=== PATIENT | male | born 1930 | race Hispanic/Latino ===

== ENCOUNTER 2017-04-24 13:09 | Observation (INO) | payer MEDICARE ==
[2017-04-24 13:15] VITALS: BMI 21.6
--- NOTE | 2017-04-24 14:00 | C.PDOC ---
History Of Present Illness Patient is a 86 y/o male, whose PMHx includes HTN, pacemaker, CAD, and 2 stents , that presents to the ED for evaluation of an episode of left sided chest pain that lasted about 10 minutes this morning. Patient states that his symptoms resolved spontaneously. Otherwise, denies any back pain, neck pain, shortness of breath, n/v/d, abdominal pain, fever, or any other associated symptoms at this time. PMD: Dr. Deisi yAala Time Seen by Provider: 04/24/17 13:21 Chief Complaint (Nursing): Chest Pain History Per: Patient History/Exam Limitations: no limitations Onset/Duration Of Symptoms: Hrs Current Symptoms Are (Timing): Gone Quality: "Pain" Associated Symptoms: denies: Nausea, Dyspnea, Diaphoresis, Syncope Modifying Factors: None Alleviating Factors: None Recent travel outside of the [place]: No Additional History Per: Patient Past Medical History Reviewed: Historical Data, Nursing Documentation, Vital Signs Vital Signs: Last Vital Signs Temp 97.6 F 04/24/17 13:28 Pulse 67 04/24/17 15:00 Resp 17 04/24/17 15:00 BP 141/83 04/24/17 15:00 Pulse Ox 98 04/24/17 15:55 - Medical History PMH: Arthritis, Benign Prostatic Hyperplasia, Cardia Arrhythmia, HTN Surgical History: Coronary Stent (3 stents), Pacemaker - [employer] Procedures ANT NASAL PACK FOR EPIST (02/02/14) INITIAL INSERT TRANS LEADS INTO [employer] (12/29/13) INITIAL INSERTION OF DUAL-CHAMBER DEVICE (12/29/13) Family History: States: Unknown Family Hx - Social History Hx Tobacco Use: No Hx Alcohol Use: No Hx Substance Use: No - Immunization History Hx Tetanus Toxoid Vaccination: No Hx Influenza Vaccination: Yes Hx Pneumococcal Vaccination: No Review Of Systems Except As Marked, All Systems Reviewed And Found Negative. Constitutional: Negative for: Fever, Chills Cardiovascular: Positive for: Chest Pain. Negative for: Palpitations, Edema, Light Headedness Respiratory: Negative for: Cough, Shortness of Breath, SOB with Excertion, Pleuritic Pain, Sputum Gastrointestinal: Negative for: Nausea, Vomiting, Abdominal Pain, Diarrhea Musculoskeletal: Negative for: Neck Pain, Back Pain Skin: Negative for: Rash Neurological: Negative for: Weakness, Numbness, Headache, Dizziness Physical Exam - Physical Exam Appears: Well, Non-toxic, No Acute Distress Skin: Normal Color, Warm, Dry Head: Atraumatic, Normacephalic Eye(s): bilateral: Normal Inspection, PERRL, EOMI Neck: Normal ROM, Supple Chest: Symmetrical, No Tenderness Cardiovascular: Rhythm Regular, No Murmur Respiratory: Normal Breath Sounds, No Rales, No Rhonchi, No Wheezing Gastrointestinal/Abdominal: Soft, No Tenderness, No Mass, No Distention Back: Normal Inspection, CVA Tenderness Extremity: Normal ROM, No Pedal Edema Neurological/Psych: Oriented x3, Normal Speech, Normal Cognition ED Course And Treatment - Laboratory Results Result Diagrams: 04/24/17 14:09 04/24/17 14:09 O2 Sat by Pulse Oximetry: 98 (on RA) Pulse Ox Interpretation: Normal Progress Note: Blood work, CXR ordered and reviewed. Patient was given Aspirin. Medical Decision Making Medical Decision Making: EKG shows paced rhythm at 71bpm. Trop x 1 negative. Cxray negative. Due to risk factors, clinical history of presentation, will transfer to tele observation. Accepted to tele observation under Dr. Nino (covering for Emilio ) Disposition - Disposition Disposition: HOSPITALIZED Disposition Time: 15:18 Condition: FAIR - Clinical Impression Clinical Impression: Chest pain - Scribe Statement The provider has reviewed the documentation as recorded by the Scribe Tobi Lopez All medical record entries made by the Scribe were at my direction and personally dictated by me. I have reviewed the chart and agree that the record accurately reflects my personal performance of the history, physical exam, medical decision making, and the department course for this patient. I have also personally directed, reviewed, and agree with the discharge instructions and disposition.
[2017-04-24 14:15] LABS: BASO # 0.1 K/uL (0.0-0.2); BASO % 1.1 % (0.0-2.0); EOS # 0.2 K/uL (0.0-0.7); HEMOGLOBIN 11.8 g/dL (12.0-18.0); LYMPH # 1.2 K/uL (1.0-4.3); LYMPH % 19.3 % (20.0-40.0); MEAN CELL VOLUME 101.4 fL (80.0-94.0); MEAN CORPUSCULAR HEMOGLOBIN 33.9 pg (27.0-31.0); MEAN CORPUSCULAR HGB CONC 33.4 g/dL (33.0-37.0); MONO # 0.6 K/uL (0.0-0.8); MONO % 9.3 % (0.0-10.0); NEUT % 67.3 % (50.0-75.0); RBC 3.49 Mil/uL (4.40-5.90); RED CELL DISTRIBUTION WIDTH 13.7 % (11.5-14.5)
[2017-04-24 14:20] LABS: PROTHROMBIN TIME 11.5 SECONDS (9.7-12.2)
[2017-04-24 14:23] LABS: ALBUMIN 3.3 g/dL (3.5-5.0)
--- NOTE | 2017-04-24 14:25 | RAD ---
HISTORY: chest pain COMPARISON: 05/02/2016 FINDINGS: LUNGS: No active pulmonary disease. PLEURA: No significant pleural effusion identified, no pneumothorax apparent. CARDIOVASCULAR: Permanent pacemaker OSSEOUS STRUCTURES: No significant abnormalities. VISUALIZED UPPER ABDOMEN: Normal. OTHER FINDINGS: None. IMPRESSION: No active disease.
[2017-04-24 14:26] LABS: ALB/GLOB RATIO 1.2 (1.0-2.1); AST/SGOT 32 U/L (17-59); GFR AFRICAN-AMERICAN > 60; GFR NON-AFRICAN AMERICAN > 60
[2017-04-24 14:27] LABS: ALT/SGPT 41 U/L (21-72); BLOOD UREA NITROGEN 19 mg/dL (9-20); CALCIUM 8.6 mg/dl (8.6-10.4)
--- NOTE | 2017-04-24 20:38 | CP.PCM.HP ---
History of Present Illness - History of Present Illness History of Present Illness: COMPREHENSIVE HISTORY & PHYSICAL EXAM HPI Patient is admitted for retrosternal chest pain. The patient woke up in the morning and while sitting at is breakfast table and suddenly experienced lightheadedness and retrosternal discomfort, especially near the epigastric region radiating to both the chest. This lasted for a few minutes, not related with aspirin and antacids. Patient presented a hospital was given MS and a nitroglycerin with some relief PAST HIST. Patient is a history of coronary artery disease. In 2013 patient had 2 stents inserted in proximal RCA and circumflex. 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 He had a stress test last year which was reported to him to be normal. PERSONAL HIST: Smoking. N Alcohol. N Allergy N Travel_- . FAMILY HIST : ROS : Constitutional: Negative for weight change, chills, night sweats, fatigue and usage of assist device. Eyes: Negative for redness, swelling, itching, discharge, vision changes, blurry vision, double vision, glaucoma, cataracts, Ears: Negative for hearing loss, ringing, , tinnitus, vertigo Nose: Negative for rhinorrhea, stuffiness, sniffing, itching, postnasal drip, discoloration, nasal congestion and epistaxis. Throat: Negative for throat clearing, sore throat, hoarseness, difficulty swallowing and difficulty speaking. Respiratory: Negative for cough, chest tightness, sputum or phlegm, chronic cough, hemoptysis, wheezing, snoring at night, pleuritic chest pain and daytime somnolence. Cardiovascular: pos for chest pain, palpitations, no orthopnea, PND, Edema of legs, leg cramps, angina, claudication, , irregular heartbeat, Neurology: Negative for irritability, muscle weakness, numbness and tingling, seizures, tremors, migraines, slurred speech, syncope, memory loss, mood changes , recurrent headaches Gastrointestinal: Negative for difficulty swallowing, diarrhea, constipation, black stools, rectal bleeding, nausea, flatulence, reflux, poor appetite, changes in bowel habits, abdominal pain Genitourinary: Negative for frequent urination, hematuria, discharge, incontinence, urinary retention, frequent UTI, Psychiatric: Negative for depression, anxiety/panic, suicidal tendencies, Musculoskeletal: Negative for swollen joints, back pain, , neck pain, morning stiffness of joints, . Skin: Negative for rash, ulcers, itching, dry skin and pigmented lesions. P/E: Constitutional: Appears stated age and in no apparent distress. Head: Normocephalic. Ears: External ear canals patent without inflammation. Tympanic membranes intact with normal light reflex and landmark. Eyes: Pupils are central, bilaterally equal, symmetrical and reacts to light with normal movements and no icterus or pallor. Nose: External nares are patent. Mucosa is pink Mouth-Throat: Good general appearance and condition. No post-pharyngeal/oropharyngeal erythema and tonsillar hypertrophy. Good dental hygiene. Neck-Lymphatic: Neck is supple with normal ROM, no thyromegaly, lymph nodes or masses. JVD is normal with no carotid bruit. Lungs: Clear to percussion and auscultation with bilateral normal air entry. Cardiovascular: S1 and S2 are normal with no murmurs, gallops and rub. GI Exam: No hepatomegaly. Abdomen is soft and non-tender. No Organomegaly , masses or hernias are evident and bowel sounds are normal and active. Neurology: Higher function and all cranial nerves intact, with no gross motor or sensory deficit. Superficial and deep reflexes are normal with downwards planters. No cerebellar deficit with normal gait. Musculoskeletal: No tender spots with normal curvature of the spine with no swelling or restricted ROM of the small and large joints. Extremities: Homans sign absent. Intact pulses with no pitting edema, calf tenderness or skin color changes. Skin: No rash, eruptions or abnormal skin pigmentation LAB/RADIOLOGY: ASSESMENT : Coronary artery disease, with 2 stents proximal RCA and circumflex with onset of angina. Hypercholesterolemia, stable on medication. Hypertension, stable on medication. Present on Admission - Present on Admission Any Indicators Present on Admission: No Past Patient History - Infectious Disease Hx of Infectious Diseases: None - Past Social History Smoking Status: Never Smoked - CARDIAC Hx Cardia Arrhythmia: Yes Hx Hypertension: Yes Hx Pacemaker: Yes - HEENT Hx HEENT Problems: Yes Hx Cataracts: Yes - MUSCULOSKELETAL/RHEUMATOLOGICAL Hx Arthritis: Yes - GENITOURINARY/GYNECOLOGICAL Hx Genitourinary Disorders: Yes Hx Prostate Problems: Yes - PSYCHIATRIC Hx Substance Use: No - SURGICAL HISTORY Hx Coronary Stent: Yes (3 stents) - ANESTHESIA Hx Anesthesia: Yes Hx Anesthesia Reactions: No Meds Allergies/Adverse Reactions: Allergies Allergy/AdvReac Type Severity Reaction Status Date / Time No Known Allergies Allergy Verified 04/24/17 13:14 Results - Vital Signs Recent Vital Signs: Last Vital Signs Temp 97.6 F 04/24/17 13:28 Pulse 68 04/24/17 18:57 Resp 13 04/24/17 18:57 BP 156/77 H 04/24/17 18:57 Pulse Ox 100 04/24/17 18:57 - Labs Result Diagrams: 04/24/17 14:09 04/24/17 14:09
[2017-04-24 20:54] VITALS: RESP 20
[2017-04-24] MEDS ORDERED: Rosuvastatin Calcium 2.5 mg Tab PO SCH (22:00)
[2017-04-24 22:47] LABS: CK-MB 0.87 ng/mL (0.0-3.38)
[2017-04-25 07:54] LABS: CK-MB 0.96 ng/mL (0.0-3.38)
[2017-04-25] MEDS ORDERED: Enoxaparin 40 mg Syringe SC SCH (10:00)
[2017-04-25] MEDS ORDERED: TICAGRELOR 60 MG PO SCH (10:00)
--- NOTE | 2017-04-25 13:25 | CP.PCM.DIS ---
Provider - Provider Date of Admission: 04/24/17 15:28 Attending physician: Manjit Nino MD Time Spent in preparation of Discharge (in minutes): 32 Hospital Course - Lab Results Lab Results: Most Recent Lab Values WBC 6.0 K/uL (4.8-10.8) 04/24/17 14:09 RBC 3.49 Mil/uL (4.40-5.90) L 04/24/17 14:09 Hgb 11.8 g/dL (12.0-18.0) L 04/24/17 14:09 Hct 35.4 % (35.0-51.0) 04/24/17 14:09 MCV 101.4 fL (80.0-94.0) H D 04/24/17 14:09 MCH 33.9 pg (27.0-31.0) H 04/24/17 14:09 MCHC 33.4 g/dL (33.0-37.0) 04/24/17 14:09 RDW 13.7 % (11.5-14.5) 04/24/17 14:09 Plt Count 157 K/uL (130-400) 04/24/17 14:09 MPV 9.0 fL (7.2-11.7) 04/24/17 14:09 Neut % (Auto) 67.3 % (50.0-75.0) 04/24/17 14:09 Lymph % (Auto) 19.3 % (20.0-40.0) L 04/24/17 14:09 [place] % (Auto) 9.3 % (0.0-10.0) 04/24/17 14:09 Eos % (Auto) 3.0 % (0.0-4.0) 04/24/17 14:09 Baso % (Auto) 1.1 % (0.0-2.0) 04/24/17 14:09 Neut # 4.0 K/uL (1.8-7.0) 04/24/17 14:09 Lymph # 1.2 K/uL (1.0-4.3) 04/24/17 14:09 [place] # 0.6 K/uL (0.0-0.8) 04/24/17 14:09 Eos # 0.2 K/uL (0.0-0.7) 04/24/17 14:09 Baso # 0.1 K/uL (0.0-0.2) 04/24/17 14:09 PT 11.5 SECONDS (9.7-12.2) 04/24/17 14:09 INR 1.0 04/24/17 14:09 APTT 33 SECONDS (21-34) 04/24/17 14:09 Sodium 137 mmol/L (132-148) 04/24/17 14:09 Potassium 4.0 mmol/L (3.6-5.2) 04/24/17 14:09 Chloride 106 mmol/L (98-107) 04/24/17 14:09 Carbon Dioxide 25 mmol/L (22-30) 04/24/17 14:09 Anion Gap 11 (10-20) 04/24/17 14:09 BUN 19 mg/dL (9-20) 04/24/17 14:09 Creatinine 0.9 MG/DL (0.8-1.5) 04/24/17 14:09 Est GFR ( Amer) > 60 04/24/17 14:09 Est GFR (Non-Af Amer) > 60 04/24/17 14:09 POC Glucose (mg/dL) 97 mg/dL (65-110) 04/24/17 13:25 Random Glucose 76 mg/dL (75-110) 04/24/17 14:09 Calcium 8.6 mg/dl (8.6-10.4) 04/24/17 14:09 Total Bilirubin 1.1 mg/dL (0.2-1.3) 04/24/17 14:09 AST 32 U/L (17-59) 04/24/17 14:09 ALT 41 U/L (21-72) 04/24/17 14:09 Alkaline Phosphatase 34 U/L (38-126) L 04/24/17 14:09 Total Creatine Kinase 31 U/L (55-170) L 04/25/17 07:08 CK-MB (Mass) 0.96 ng/mL (0.0-3.38) 04/25/17 07:08 Troponin I < 0.0120 ng/mL (0.00-0.120) 04/24/17 14:09 Troponin I, Quant < 0.0120 ng/mL (0.00-0.120) 04/25/17 07:08 Total Protein 6.1 g/dL (6.3-8.3) L 04/24/17 14:09 Albumin 3.3 g/dL (3.5-5.0) L 04/24/17 14:09 Globulin 2.8 gm/dL (2.2-3.9) 04/24/17 14:09 Albumin/Globulin Ratio 1.2 (1.0-2.1) 04/24/17 14:09 - Hospital Course Hospital Course: Patient is admitted for retrosternal chest pain. The patient woke up in the morning and while sitting at is breakfast table and suddenly experienced lightheadedness and retrosternal discomfort, especially near the epigastric region radiating to both the chest. This lasted for a few minutes, not related with aspirin and antacids. Patient presented a hospital was given MS and a nitroglycerin with some relief PAST HIST. Patient is a history of coronary artery disease. In 2013 patient had 2 stents inserted in proximal RCA and circumflex. 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 He had a stress test last year which was reported to him to be normal. SERIAL TNI WERE NEG WITH NO NEW ST T CHANGES ON EKG NO FURTHER SYMPTOMS PT WANTS FURTHER TESTING WITH HIS BUS ATTENDANT OUT PT Discharge Plan - Follow Up Plan Condition: FAIR Disposition: HOME/ ROUTINE
[2017-04-25 16:09] VITALS: BP 127/83; PULSE 74; TEMP 98.6; O2SAT 97
--- NOTE | 2017-04-25 16:17 | CP.PCM.PN ---
Subjective - Date & Time of Evaluation Date of Evaluation: 04/25/17 Time of Evaluation: 16:17 - Subjective Subjective: PT SEEN BY DR. MURRAY THIS AFTERNOON AND CLEARED FOR D/C HOME TODAY. TO F/U WITH PMD, DR. Franko MINER IN THE OFFICE. NO NEW RX. Objective - Vital Signs/Intake and Output Vital Signs (last 24 hours): Temp Pulse Resp BP Pulse Ox 98.6 F 74 20 127/83 97 04/25/17 16:08 04/25/17 16:08 04/25/17 16:08 04/25/17 16:08 04/25/17 16:08 Intake and Output: 04/25/17 04/25/17 06:59 18:59 Intake Total 120 Balance 120 - Medications Medications: Current Medications Aspirin (Aspirin Chewable) 81 mg PO DAILY [facility] Last Admin: 04/25/17 09:03 Dose: 81 mg Enoxaparin Sodium (Lovenox) 40 mg SC DAILY [facility] Last Admin: 04/25/17 09:03 Dose: 40 mg Famotidine (Pepcid) 20 mg PO DAILY [facility] Last Admin: 04/25/17 09:03 Dose: 20 mg Finasteride (Proscar) 5 mg PO DAILY [facility] Last Admin: 04/25/17 10:16 Dose: 5 mg Losartan Potassium (Cozaar) 25 mg PO DAILY [facility] Last Admin: 04/25/17 09:03 Dose: 25 mg Losartan Potassium (Cozaar) 50 mg PO DAILY [facility] Last Admin: 04/25/17 09:03 Dose: 50 mg Metoprolol Tartrate (Lopressor) 25 mg PO DAILY [facility] Last Admin: 04/25/17 09:09 Dose: 25 mg Rosuvastatin Calcium (Crestor) 2.5 mg PO HS [facility] Last Admin: 04/24/17 22:58 Dose: 2.5 mg Tamsulosin HCl (Flomax) 0.4 mg PO DAILY [facility] Last Admin: 04/25/17 09:03 Dose: 0.4 mg Ticagrelor (Brilinta) 60 mg PO BID [facility] - Labs Labs: PT 11.5 SECONDS (9.7-12.2) 04/24/17 14:09 INR 1.0 04/24/17 14:09 APTT 33 SECONDS (21-34) 04/24/17 14:09
--- NOTE | 2017-04-26 13:34 | CARD ---
APPROVED REPORT EKG Measurement Heart [id number] 260P [id number] <Conclusion> AV dual-paced rhythm with prolonged AV conduction Abnormal ECG
--- NOTE | 2017-04-26 14:03 | CARD ---
APPROVED REPORT EKG Measurement Heart [id number] <Conclusion> AV dual-paced rhythm Abnormal ECG
== END 2017-04-25 18:08 | disposition home or self-care (01) ==
LOC: C.ER 13:09 → C.9E 15:28 → C.6T 19:37
PROVIDERS: ADMIT Internal Medicine Cardiovascular Disease; ATTEND Internal Medicine Cardiovascular Disease
DX: R07.9 Chest pain, unspecified (principal); I10 Essential (primary) hypertension; I25.119 Atherosclerotic heart disease of native coronary artery with unspecified angina pectoris; N40.0 Benign prostatic hyperplasia without lower urinary tract symptoms; Z95.0 Presence of cardiac pacemaker; E78.00 Pure hypercholesterolemia, unspecified
CPT/HCPCS: 36415; 71010; 80053; 82550; 82553; 82948; 84484; 85025; 85610; 85730; 99285; G0378; J1650